=== PATIENT | male | born 1975 | race Caucasian/White ===

== ENCOUNTER 2019-01-14 08:11 | Emergency (ER) | payer MEDICAID ==
[~2019-01-14] VITALS: Ht 172.7 cm; Wt 72.6 kg
[2019-01-14 08:34] VITALS: BP_SYST 97
[2019-01-14] MEDS ORDERED: MORPHINE 4 MG/ML INJ. SYRINGE IM ONE (09:00)
[2019-01-14 12:18] VITALS: BP_SYST 110
== END 2019-01-14 12:18 | disposition home or self-care (01) ==
LOC: SED 08:11
DX: S32.491A Other specified fracture of right acetabulum, initial encounter for closed fracture (principal); F10.20 Alcohol dependence, uncomplicated; R03.0 Elevated blood-pressure reading, without diagnosis of hypertension; V89.2XXA Person injured in unspecified motor-vehicle accident, traffic, initial encounter; Y93.89 Activity, other specified; Y92.410 Unspecified street and highway as the place of occurrence of the external cause; Y99.8 Other external cause status
CPT/HCPCS: 73502; 73700; 96372; 99284; J2270